=== PATIENT | female | born 1955 | race Hispanic/Latino ===

== ENCOUNTER → 2023-09-04 | Outpatient (CLI) | payer OTHER, MEDICARE | END | disposition home or self-care (01) | LOC: SHCH 10:48 | PROVIDERS: ATTEND Student in an Organized Health Care Education/Training Program | DX: R06.02 Shortness of breath (principal) | CPT/HCPCS: 93306 ==

== ENCOUNTER → 2024-06-16 | Outpatient (CLI) | payer OTHER, MEDICARE ==
[~2024-06-16] MED LIST: IOHEXOL 350 MG/ML 100ML INFUS..BTL IV ONE; METOPROLOL TARTRATE 1 MG/ML 5ML VIAL IV ONE
== END | disposition home or self-care (01) ==
LOC: RAH 07:51
PROVIDERS: ATTEND Student in an Organized Health Care Education/Training Program
DX: R07.9 Chest pain, unspecified (principal)
CPT/HCPCS: 75574; J3490; Q9967

== ENCOUNTER → 2024-08-18 | Outpatient (CLI) | payer OTHER | END | disposition home or self-care (01) | LOC: RAH 08:37 | PROVIDERS: ATTEND Family Medicine | DX: I65.21 Occlusion and stenosis of right carotid artery (principal) | CPT/HCPCS: 93880 ==

== ENCOUNTER → 2024-09-15 | Outpatient (CLI) | payer OTHER ==
--- NOTE | 2024-09-20 08:53 | HMCSR ---
APPROVED REPORT EXAM: Two-dimensional and M-mode echocardiogram with Doppler and color Doppler. INDICATION ICD: I35.1 Non-rheumatic aortic valve regurgitation RISK FACTORS Hypertension Hyperlipidemia 2D Dimensions RVDd3.9 cmLVEF(%)63.6 (>50%)LVED Vol(simp.)98.0 mL IVSd1.3 (0.7-1.1cm)FS(%)34 %LVES Vol(simp.)42.0 mL LVDd3.6 (3.8-5.6cm)Ao Root(2D)3.2 (2.0-3.7cm)LVEF(%, simp.)57 % PWd1.3 (0.7-1.1cm)LVOT diam2.0 (1.8-2.4cm)LA ESV INDEX (BP)28.48 mL/m2 LVDs2.4 (2.5-4.0cm)IVC diam1.6 cm Aortic Valve AoV Vmax2.0 m/Jovany Peak GR16.4 mmHgLVOT Vmax1.0 m/s AoV VTI0.4 mAo Mean GR10.8 mmHgLVOT VTI0.24 m LITO (VMAX)1.6 cm2AVA (VTI) 1.6 cm2 Mitral Valve MV E Vmax52.9 cm/sDECEL Hdxu871 ms MV A Vmax87.4 cm/sP 1/2 T83 ms E/A ratio0.6MVA (PHT)2.6 cm2 TDI E/E' Newntw01.1E/E' Lateral7.6 Pulmonary Valve PV Vmax1.0 m/sPV VTI0.21 mPV Mean GR2 mmHg PV Peak GR3.7 mmHg Tricuspid Valve TR Vmax1.8 m/sRAP (EST) 3 reKrSBLZ12.5 mmHg TR Peak GR13.5 mmHg Left Ventricle The left ventricle structure and function is normal. There is mild concentric left ventricular hypert rophy. LVEF is 55-60%. Left ventricular filling pattern is normal for age. Right Ventricle The right ventricle is normal size. The right ventricular systolic function is normal. Atria The left atrium size is normal. The right atrium size is normal. Aortic Valve Aortic valve is trileaflet. Aortic valve is mildly calcified. Trace to mild aortic regurgitation. Bennett culated aortic valve area is 1.6 cm2 with maximum pressure gradient of 16.4 mmHg and mean pressure gr adient of 10.8 mmHg. There is no aortic valvular stenosis. Mitral Valve Mitral valve leaflets are mildly sclerotic but open well. Mitral regurgitation is trace. There is no mitral valve stenosis. Tricuspid Valve The tricuspid valve leaflets appear normal. There is trace tricuspid regurgitation. Pulmonic Valve Pulmonic valve is not well visualized. There is trace pulmonic valvular regurgitation. Great Vessels The aortic root is normal in size. The IVC is normal in size and collapses >50% with inspiration. Pericardium No pericardial effusion. Conclusion The left ventricle structure and function is normal. There is mild concentric left ventricular hypertrophy. LVEF is 55-60%. Left ventricular filling pattern is normal for age. The right ventricle is normal size. The right ventricular systolic function is normal. The left atrium size is normal. The right atrium size is normal. Trace to mild aortic regurgitation. No pericardial effusion.
== END | disposition home or self-care (01) ==
LOC: SHCH 08:06
PROVIDERS: ATTEND Student in an Organized Health Care Education/Training Program
DX: I35.1 Nonrheumatic aortic (valve) insufficiency (principal)
CPT/HCPCS: 93306